=== PATIENT | female | born 1955 | race Caucasian/White ===

== ENCOUNTER 2020-09-26 10:08 | Inpatient (IN) | payer MEDICARE ==
[~2020-09-26] VITALS: Ht 167.6 cm; Wt 69.9 kg
[2020-09-26 11:20] LABS: BASOPHIL 0.2 % (0-2); EOSINOPHIL 1.2 % (0-7); HCT 38.1 % (37.0-47.0); HGB 12.1 g/dl (12.5-16.0); LYMPHOCYTE 6.3 % (15-48); MCH 29.4 pg (25.0-31.0); MCHC 31.8 g/dL (32.0-36.0); MCV 92.7 fL (78.0-100.0); MONOCYTE 11.5 % (0-12); MPV 10.6 fL (6.0-9.5); NEUTROPHIL 80.2 % (41-80); NRBC 0; PLT 245 K/uL (150-400); RBC 4.11 M/uL (4.20-5.40); RDW 13.1 % (11.5-14.0); WBC 12.2 K/uL (4.0-10.5)
[2020-09-26 11:27] LABS: ALBUMIN 3.2 g/dL (3.4-5.0); BILIRUBIN - TOTAL 0.7 mg/dL (0.2-1.0); BUN/CREAT RATIO (CALC) 6.4 RATIO; CREATININE 0.94 mg/dL (0.51-0.95); GLOBULIN (CALCULATION) 3.5 g/dL; POTASSIUM 3.6 mmol/L (3.5-5.1); TOTAL PROTEIN 6.7 g/dL (6.4-8.2)
[2020-09-26 11:42] LABS: LACTIC ACID 1.2 mmol/L (0.4-1.9)
[2020-09-26 12:14] LABS: BILIRUBIN 1+ mg/dL (NEGATIVE); BLOOD 1+ Ery/uL (NEGATIVE); CLARITY CLEAR (CLEAR); GLUCOSE (U) NORMAL (NORMAL); LEUKOCYTES TRACE Leu/uL (NEGATIVE); NITRITE NEGATIVE (NEGATIVE); PROTEIN 2+ mg/dL (NEGATIVE); SPECIFIC GRAVITY 1.025 (1.001-1.030)
[2020-09-26 12:15] LABS: COLOR AMBER (YELLOW)
[2020-09-26 12:24] LABS: BACTERIA TRACE; MUCOUS TRACE
[2020-09-26] MEDS ORDERED: ULTRAM50 MG PO (14:23)
[2020-09-26] MEDS ORDERED: LEVAQUIN750 MG PO (14:23)
[2020-09-26] MEDS ORDERED: LIPITOR20 MG PO (20:48)
[2020-09-26] MEDS ORDERED: TOPROL XL 50 MG50 MG PO (20:49)
[2020-09-26] MEDS ORDERED: SINGULAIR10 MG PO (20:49)
[2020-09-26] MEDS ORDERED: ALEVE220 MG PO (20:50)
[2020-09-26] MEDS ORDERED: ADVAIR 250-501 EACH INH (20:51)
[2020-09-26] MEDS ORDERED: VENTOLIN (2.5 MG/3 M INH (20:52)
[2020-09-26] MEDS ORDERED: TYLENOL PM EX-1 EACH PO (20:53)
[2020-09-26] MEDS ORDERED: MUCINEX 600MG600 MG PO (20:54)
[2020-09-26] MEDS ORDERED: VITAMIN D325 GM PO (20:56)
[2020-09-26] MEDS ORDERED: FLONASE ALLER15.8 ML (20:57)
[2020-09-26] MEDS ORDERED: PROZAC40 MG PO (20:58)
[2020-09-26] MEDS ORDERED: PREVACID 24HR15 MG PO (20:59)
[2020-09-27 04:41] LABS: HCT 32.2 % (37.0-47.0); HGB 10.3 g/dl (12.5-16.0); MCH 29.5 pg (25.0-31.0); MCV 92.3 fL (78.0-100.0); MPV 10.4 fL (6.0-9.5); RBC 3.49 M/uL (4.20-5.40); RDW 13.1 % (11.5-14.0); WBC 8.4 K/uL (4.0-10.5)
[2020-09-27 04:57] LABS: BUN/CREAT RATIO (CALC) 13.5 RATIO; CREATININE 0.89 mg/dL (0.51-0.95); POTASSIUM 3.5 mmol/L (3.5-5.1)
--- NOTE | 2020-09-27 15:16 | NUR ---
09/27/20 Ms. Monet shares a hoem with her spouse. She has one child and one stepchild. Ms. Monet continues to work. She is independent in the home and community. No discharge planning needs are anticipated.
[2020-09-28] MEDS ORDERED: IBUPROFEN600 MG PO (10:21)
[2020-09-28] MEDS ORDERED: NORCO 5-325 TA1 EACH PO (10:21)
[2020-09-28] MEDS ORDERED: FLORANEX TABLE1 EACH PO (10:21)
[2020-09-28] MEDS ORDERED: LEVAQUIN750 MG PO (10:21)
[2020-09-29 10:11] LABS: ORGANISM ID Not indicated. (.); SPECIMEN SOURCE Urine (.); STREPTOCOCCUS PNEUMONIAE AG Negative (Negative)
== END 2020-09-28 11:50 | disposition home or self-care (01) | DRG 194 ==
LOC: FER 10:08 → FTCU 17:09
PROVIDERS: Emergency Medicine; ADMIT Hospitalist
DX: J18.9 Pneumonia, unspecified organism (principal); J90 Pleural effusion, not elsewhere classified; I10 Essential (primary) hypertension; J45.909 Unspecified asthma, uncomplicated; Z20.822 Contact with and (suspected) exposure to COVID-19; G47.33 Obstructive sleep apnea (adult) (pediatric); K58.9 Irritable bowel syndrome, unspecified; Z90.710 Acquired absence of both cervix and uterus; Z98.890 Other specified postprocedural states; Z90.89 Acquired absence of other organs; Z88.5 Allergy status to narcotic agent; Z88.2 Allergy status to sulfonamides; Z88.8 Allergy status to other drugs, medicaments and biological substances; Z98.51 Tubal ligation status
CPT/HCPCS: 36415; 36600; 71045; 71275; 80048; 80053; 81001; 82803; 83605; 84484; 85025; 85379; 87040; 87070; 87205; 87449; 93005; 94010; J1170; J1650; J1885; J1956; J3490; J7030; Q9967; U0002